=== PATIENT | male | born 1945 | race Caucasian/White ===

== ENCOUNTER 2021-10-10 09:12 | Outpatient (CLI) | payer MEDICARE, SELFPAY | END 2021-10-10 09:13 | disposition home or self-care (01) | LOC: ANHBWCAUD 09:19 | PROVIDERS: PCP Nurse Practitioner Adult Health; Visit Provider Nurse Practitioner Adult Health | DX: H90.3 Sensorineural hearing loss, bilateral (principal) | CPT/HCPCS: 92557; 92567 ==

== ENCOUNTER 2021-11-14 08:30 | Outpatient (RCR) | payer SELFPAY | END 2022-01-08 23:59 | disposition home or self-care (01) | LOC: ANHBWCAUD 08:30 | PROVIDERS: PCP Nurse Practitioner Adult Health; Visit Provider Nurse Practitioner Adult Health | DX: Z46.1 Encounter for fitting and adjustment of hearing aid (principal) | CPT/HCPCS: 99199; V5264 ==

== ENCOUNTER 2022-02-20 10:45 | Outpatient (RCR) | payer MEDICARE, SELFPAY | END 2022-05-21 23:59 | disposition home or self-care (01) | LOC: ANHBWCAUD 10:45 | PROVIDERS: PCP Nurse Practitioner Adult Health; Visit Provider Nurse Practitioner Adult Health | DX: Z46.1 Encounter for fitting and adjustment of hearing aid (principal) | CPT/HCPCS: 92592 ==

== ENCOUNTER 2022-10-31 10:49 | Outpatient (CLI) | payer MEDICARE, SELFPAY | END 2022-10-31 10:50 | disposition home or self-care (01) | PROVIDERS: PCP Nurse Practitioner Family; Visit Provider Nurse Practitioner Family | DX: H90.3 Sensorineural hearing loss, bilateral (principal) | CPT/HCPCS: 92557; 92567 ==